=== PATIENT | male | born 1985 ===

== ENCOUNTER 2022-10-08 06:02 | Emergency (ER) | payer OTHER ==
[2022-10-08] MEDS ORDERED: Mag-Al Plus 1200 MG/1200 MG/120 MG/30 ML UDCUP ONE (06:43)
[2022-10-08] MEDS ORDERED: Lidocaine Viscous Sol 2% 15 ml UD Cup ONE (06:43)
[2022-10-08 06:54] LABS: ALT (SGPT) 12 U/L (8-55); AST (SGOT) 13 U/L (5-34); Albumin 4.4 g/dL (3.5-5.0); Alkaline Phosphatase 61 U/L (40-110); Anion Gap 13 mmol/L (10-20); BUN (Urea Nitrogen) 13 mg/dL (8.9-20.6); Bilirubin, Total 0.6 mg/dL (0.2-1.2); CK (CPK) 75 U/L (30-200); CRP (Inflammatory) 0.72 mg/dL (= or < 0.5); Calc. Creatinine Clearance 0 mL/min (70-130); Calcium 9.1 mg/dL (7.8-10.44); Carbon Dioxide 24 mmol/L (22-29); Chloride 106 mmol/L (98-107); Estimated GFR 117; Globulin 1.9 g/dL (2.4-3.5); Glucose 94 mg/dL (70-105); Protein, Total 6.3 g/dL (6.0-8.3); Sodium 139 mmol/L (136-145)
[2022-10-08 06:55] LABS: #Basophils 0.1 thou/uL (0.0-0.2); #Eosinphils 0.5 thou/uL (0.0-0.7); #Lymphocytes 0.9 thou/uL (1.20-3.40); #Monocytes 0.7 thou/uL (0.11-0.59); #Neutrophils 8.1 thou/uL (1.40-6.50); %Basophils 0.8 % (0.0-1.0); %Eosinophils 5.2 % (0.0-10.0); %Lymphocytes 8.9 % (21.0-51.0); %Monocytes 6.9 % (0.0-10.0); %Neutrophils 78.2 % (42.0-75.0); Hemoglobin 15.8 g/dL (14.0-18.0); Mean Corpuscular HGB CONC 33.9 g/dL (32.0-36.0); Mean Corpuscular Hemoglobin 28.8 pg (27.0-31.0); Mean Corpuscular Volume 85.1 fl (78.0-98.0); Mean Platelet Volume 9.4 fL (7.4-10.4); Platelet Count 235 10x3/uL (130-400); RBC Distribution Width 12.4 % (11.5-14.5); Red Blood Cell (RBC) Count 5.49 mill/uL (4.70-6.10); White Blood Cell (WBC) Count 10.3 10x3/uL (4.8-10.8)
[2022-10-08 07:59] LABS: Bilirubin Small (Negative); Blood, Urine Negative (Negative); Clarity Clear (Clear); Glucose, Urine (Dipstick) Negative (Negative); Ketone, Urine 40 mg/dL (Negative); Leukocyte Negative (Negative); Nitrite Negative (Negative); Protein, Urine (Dipstick) Negative (Neg-Trace); Urobilinogen 0.2 mg/dL (Less than 2); pH, Urine 5.5 (5.0-9.0)
[2022-10-08 08:01] LABS: Specific Gravity, Urine 1.025 (1.002-1.036)
[2022-10-08] MEDS ORDERED: Iopamidol 370 76% 100 ML VIAL ONE (09:00)
== END 2022-10-08 08:48 | disposition home or self-care (01) ==
LOC: NAV ERS 06:02
DX: K29.00 Acute gastritis without bleeding (principal); A08.4 Viral intestinal infection, unspecified; F17.210 Nicotine dependence, cigarettes, uncomplicated
CPT/HCPCS: 74177; 80053; 81003; 82550; 83605; 83690; 84484; 85025; 86140; 93005; 96360; Q9967